=== PATIENT | male | born 1985 | race Caucasian/White ===

== ENCOUNTER → 2020-11-12 09:10 | Outpatient (CLI) | payer OTHER, SELFPAY ==
[2020-11-12 12:25] LABS: ALB/GLOB Ratio 1.2 RATIO (0.9-2.4); AST(SGOT) 34 U/L (15-37); Alanine Aminotransfer ALT/SGPT 82 U/L (16-61); Albumin, Serum 4.2 g/dL (3.2-5.0); Alkaline Phosphatase 57 U/L (45-117); Anion Gap 6 (5-15); BUN 12 mg/dL (7-18); BUN/Creat Ratio 12.6 RATIO (10-20); Calcium,Total 9.2 mg/dL (8.5-10.1); Chloride 107 mmol/L (98-107); Cholesterol 169 mg/dL (200); Creatinine, Serum 0.95 mg/dL (0.70-1.30); EST Glomerular Filtration Rate 95 mL/min (>60); Est Glom Filt Rate - Afr Amer 114 mL/min (>60); Globulin 3.5 g/dL (2.2-4.2); Glucose 98 mg/dL (74-106); High Density Lipoprotein 36 mg/dL; Potassium 4.2 mmol/L (3.5-5.1); Protein, Total 7.7 g/dL (6.4-8.2); Sodium Level 140 mmol/L (136-145); Triglycerides 97 mg/dL; Very Low Density Lipoprotein 19 mg/dL (5-40)
== END ==
PROVIDERS: PCP Family Medicine; Referring Provider Family Medicine; Visit Provider Family Medicine
DX: Z00.00 Encounter for general adult medical examination without abnormal findings (principal)
CPT/HCPCS: 36415; 80053; 80061

== ENCOUNTER → 2023-03-15 | Outpatient (CLI) | payer OTHER, SELFPAY ==
[2023-03-15 12:26] LABS: Absolute Lymphocyte Count 2.49 X10^3/uL (0.83-4.51); Absolute Neutrophil Count 4.3 X10^3/uL (2.0-7.7); Basophil# 0.04 X10^3/uL; Basophil% 0.5 % (0-1); Eosinophil# 0.21 X10^3/uL; Eosinophils% 2.8 % (0-5); Hematocrit 46.7 % (40-54); Hemoglobin 15.8 g/dL (13.0-16.5); Lymphocyte # 2.49 X10^3/ul (0.83-4.51); Lymphocyte % 32.9 % (19-41); Mean Corp Hgb Conc 33.8 g/dL (32-36); Mean Corpuscular Hgb 30.4 pg (27.0-32.0); Mean Corpuscular Volume 89.8 fL (80-94); Mean Platelet Vol. 10.3 fl (6.2-12.0); Monocyte% 6.6 % (0-10); NRBC Flagged by Analyzer 0 % (0-5); Neutrophil % 56.9 % (47-70); Platelet Count 212 K/mm3 (150-450); RBC Distribution Width CV 12.2 % (11.6-14.6); RBC Distribution Width SD 39.7 fl (35.1-43.9); White Blood Count 7.6 K/mm3 (4.4-11.0)
--- OUTSIDE RECORDS SUMMARY | 2023-03-15 12:27 | XMS RPT_ITS | CCD ---
Author Name Unknown Address [address] [place] [address] Organization [facility] Care Team Providers Care Checkerer Hand Name Role Phone WILLIAN RICHARDS Unavailable Unavailable PRISCA SHERMAN Unavailable Unavailable Results Test Name Value Interpretation Reference Range Facil ity Encounters Encounter Date Encounter Type Care Provider Facility Start: 01-28-2018 End: 01-29-2018 Emergency department patient visit WILLIAN RICHARDS Facil ity:B Payers Date Payer Category Payer Unknown [id number] 2018 Unknown [id number] 1985 Unknown [id number] Summary Purpose Family History No Family History Records Found Advance Directives No Advanced Directives Records Found Additional Source Comments (unrecognized sect ion and content) No Status Records Found INFORMATION SOURCE (unrecogn ized section and content) FOR RECORDS PERTAINING TO PATIENTS WHO ARE OR HAVE BEEN ENROLLED IN A CHEMICAL DEPENDENCY/SUBSTANCEABUSE PROGRAM, SOME INFORMATION MAY BE OMITTED. This clinical summary was aggregated from multiple sources. Caution should be exercised in using it in the provision of clinical care. This summary normalizes information from multiple sources, and as a consequence, information in this document may materially change the coding, format and clinical context of patient data. In addition, data may be omitted in some cases. CLINICAL DECISIONS SHOULD BE BASED ON THE PRIMARY CLINICAL RECORDS. [employer] provides no warranty or guarantee of the accuracy or completeness of information in this document.
[2023-03-15 13:03] LABS: AST(SGOT) 21 U/L (15-37); Alanine Aminotransfer ALT/SGPT 67 U/L (16-61); Albumin, Serum 3.8 g/dL (3.2-5.0); Alkaline Phosphatase 68 U/L (45-117); Anion Gap 6 (5-15); BUN 11 mg/dL (7-18); BUN/Creat Ratio 10.6 RATIO (10-20); Calcium,Total 10.1 mg/dL (8.5-10.1); Chloride 108 mmol/L (98-107); Cholesterol 156 mg/dL (200); Creatinine, Serum 1.04 mg/dL (0.70-1.30); EST Glomerular Filtration Rate 84 mL/min (>60); Est Glom Filt Rate - Afr Amer 102 mL/min (>60); Globulin 3.8 g/dL (2.2-4.2); Glucose 122 mg/dL (74-106); High Density Lipoprotein 34 mg/dL; Potassium 4.1 mmol/L (3.5-5.1); Protein, Total 7.6 g/dL (6.4-8.2); Sodium Level 138 mmol/L (136-145); Triglycerides 186 mg/dL; Very Low Density Lipoprotein 37 mg/dL (5-40)
== END | disposition home or self-care (01) ==
LOC: BIMLAB 10:53
PROVIDERS: PCP Family Medicine; Referring Provider Family Medicine; Visit Provider Family Medicine
DX: Z98.890 Other specified postprocedural states (principal); Z87.19 Personal history of other diseases of the digestive system; R04.0 Epistaxis; M25.562 Pain in left knee
CPT/HCPCS: 36415; 80053; 80061; 85025

== ENCOUNTER → 2023-04-26 | Outpatient (CLI) | payer OTHER, SELFPAY | END | disposition home or self-care (01) | LOC: LABSPEC 09:52 | PROVIDERS: PCP Family Medicine; Referring Provider Physician Assistant; Visit Provider Physician Assistant | DX: R50.9 Fever, unspecified (principal) | CPT/HCPCS: 87631 ==

== ENCOUNTER 2024-06-11 08:48 | Emergency (ER) | payer OTHER, SELFPAY ==
[2024-06-11 08:49] VITALS: BP 131/80; PULSE 86; RESP 16; TEMP 37; O2SAT 98; BMI 31.2
--- NOTE | 2024-06-11 08:57 | US_ITS ---
EXAM: US Scrotum and US Duplex Arterial/Venous of the Testicles, Complete CLINICAL INDICATION: ACUTE PAIN RIGHT TESTICLE TECHNIQUE: Real-time ultrasound of the scrotum with color Doppler and image documentation. Real-time duplex ultrasound scan of the arterial and venous flow of the scrotal contents with color Doppler flow and spectral waveform analysis. COMPARISON: No relevant prior studies available. FINDINGS: RIGHT TESTICLE: Unremarkable. No torsion. The right testicle measures 4.3 x 2.9 x 2.1 cm. LEFT TESTICLE: Unremarkable. No torsion. The left testicle measures 4.2 x 3.0 x 2.1 cm. EPIDIDYMIDES: Right epididymal head measures 1.1 by 1.0 by 0.9 cm. Left epididymal head measures 1.1 x 0.9 x 0.5 cm. SCROTUM: Small left hydrocele. US/Testicular with Arterial Flow IMPRESSION: Small left hydrocele. Reading [facility]
--- NOTE | 2024-06-11 08:58 | EX.ED.DYSGE1 ---
HPI History of Present Illness Chief Complaint: Abd Pain Detail of Chief Complaint: Atraumatic right testicular pain Informant: patient and spouse/S.O. Onset/Context/Timing Onset: Yesterday Context: Sudden Onset Timing: Continuous Quality: Pain Location: Right testicle Current Severity: Moderate Maximum Severity: Severe Worsened by: Touch and movement Relieved by: Nothing Associated Symptoms Associated Symptoms: Question of fullness right side Narrative Narrative: Patient is a 38-year-old male. He has history of left inguinal hernia repair 22 years ago. He presents with abrupt onset of right testicular pain. There is no history of trauma. He does not recall anything that caused the pain. He denies dysuria, frequency, urgency or hematuria. He has no history of renal ureterolithiasis. There is no family history of renal ureterolithiasis. He denies constitutional symptoms. He is status postvasectomy [address] Bowen. Prior similar symptoms: No Recent Illness/Hospitalization: No PFSH PFSH Medical History Headache, migraine Bone fracture Back problem Seasonal allergies Home Medications ?Medication ?Instructions ?Recorded ?Last Taken ?Type fexofenadine 180 mg tablet 180 mg PO DAILY 11/12/20 Unknown History (Mirta Allergy) multivitamin 1 tab PO DAILY 11/12/20 Unknown History imiquimod 5 % topical cream packet 1 applic topical 2XW #12 ea 03/15/23 Unknown Rx naproxen 500 mg tablet 500 mg PO BID #14 tabs 06/11/24 Unknown Rx Allergy/AdvReac Type Severity Reaction Status Date / Time No Known Allergies Allergy Verified 06/11/24 08:48 Family History Grandfather Cancer stomach Diabetes Grandmother Cancer Diabetes Father CVA (cerebral vascular accident) Diabetes Mother Diabetes Other Hypertension Surgical History History of hand surgery History of hernia repair Social History Smoking Status: Former smoker quit date: 03/13/20 Tobacco: How many years used: 20 alcohol intake: current alcohol intake frequency: holidays/special occasions only substance use type: does not use what type of physical activity do you participate in: other details: cardio ROS ROS ED Constitutional Constitutional ED: Denies chills, fever(s), subjective or sweats Cardiovascular Cardiovascular: Denies chest pain Respiratory/Chest Respiratory/Chest: Denies dyspnea Gastrointestinal Gastrointestinal: Denies nausea or vomiting Genitourinary Genitourinary ED: Reports other Details: Right testicular pain ; Denies dysuria, hematuria or urinary frequency Musculoskeletal Musculoskeletal: Denies arthralgias or myalgias Integumentary Denies rash Hematologic/Lymphatic Hematologic/Lymphatic: Denies easy bleeding or easy bruising EXAM Physical Exam Const Vital Signs: 06/11/24 08:49 06/11/24 10:48 Temperature 98.6 F Temperature Source Temporal Pulse Rate 86 78 Respiratory Rate 16 16 Blood Pressure 131/80 H Blood Pressure Mean 97 Pulse Ox 98 Oxygen Delivery Method Room Air Positive well nourished and well developed Constitutional Narrative: Patient appears uncomfortable. He grimaced more than once with movement. General Appearance ED: well developed; Negative for pallor HEENT HEENT Narrative: Head is atraumatic normocephalic. Ears normal. Eyes PERRL and EOMs intact bilaterally General Eye ED: Negative for scleral icterus Resp normal respiratory effort Cardio regular rate and regular rhythm GI normal to inspection, nondistended, normoactive bowel sounds, non-tender, non-distended and no masses; Negative for hepatosplenomegaly Back/Spine no CVA tenderness Extremity normal to inspection Neuro oriented x3 and CN's II-XII intact bilaterally Sensorium / Orientation: alert Psych mental status grossly normal Skin no rashes or lesions noted, no wounds and skin turgor normal Skin Narrative: Perineal scrotal area described under the portion of the EMR. General Skin Exam: elasticity normal; Negative for jaundice or pallor MDM MDM MDM Narrative Medical decision making narrative: With abrupt onset of atraumatic right testicular pain need to evaluate for torsion, epididymitis, hydrocele, hernia. There is no hernia appreciated on exam i.e. bulge or defect. Patient has an exquisitely tender testicle concern for infection versus torsion. Ultrasound with Doppler flow was ordered as well as UA, CBC and BMP. History & Record Review Additional record(s) reviewed:: Prior outpatient record (Urgent care records from April 26, 2023 reviewed for upper respiratory tract infection. Also correspondence from external source for problems with nose and authorization for CAT scan. Visit to Dr. Bowen for condyloma acuminata January 2022.) Lab Data Attestation: I reviewed the patient's lab results. Lab results narrative: CBC is normal. Labs: Laboratory Results - last 24 hr 06/11/24 06/11/24 09:05 09:56 WBC 7.8 RBC 5.30 Hgb 15.9 Hct 45.8 MCV 86.4 MCH 30.0 MCHC 34.7 RDW Std Deviation 39.0 RDW Coeff of [place] 12.4 Plt Count 215 MPV 10.1 Immature Gran % (Auto) 0.300 Neut % (Auto) 56.8 Lymph % (Auto) 34.1 [place] % (Auto) 6.5 Eos % (Auto) 1.8 Baso % (Auto) 0.5 Absolute Neuts (auto) 4.4 Absolute Lymphs (auto) 2.64 Nucleated RBC % 0 Sodium 137 Potassium 4.4 Chloride 104 Carbon Dioxide 21.5 Anion Gap 11 BUN 13 Creatinine 1.02 Estim Creat Clear Calc 113.40 Est GFR (MDRD) Non-Af 95 BUN/Creatinine Ratio 12.4 Glucose 125 H Calcium 9.6 Urine Color Yellow Urine Clarity Clear Urine pH 6.0 Ur Specific [place] 1.015 Urine Protein 15 H Urine Glucose (UA) Normal Urine Ketones Negative Urine Occult Blood Negative Urine Nitrite Negative Urine Bilirubin Negative Urine Urobilinogen Normal Ur Leukocyte Esterase Negative Urine RBC 0 SEEN Urine WBC 0 SEEN Ur Squamous Epith Cells 0 SEEN Urine Bacteria 0 SEEN Urine Mucus 0 SEEN Radiography Diagnostic Testing: Clinical Impression(s) from Imaging Studies Testicular Ultrasound 06/11/24 08:57 IMPRESSION: Small left hydrocele. Reading Location: [facility] Treatment and Re-Evaluation :: Patient and were informed of results. Patient received ketorolac in the department prior to discharge and prescribed anti-inflammatory since he has no contraindication. He was given excuse for work for today and tomorrow. Discharge Plan Triage Chief Complaint: Abd Pain ED Provider: Amor Aviles Dx/Rx/DC Orders Clinical Impression: Orchitis and epididymitis, Elevated blood-pressure reading without diagnosis of hypertension Instructions: ED Orchitis Prescriptions: New naproxen 500 mg tablet 500 mg PO BID Qty: 14 0RF No Action multivitamin Tablet 1 tab PO DAILY fexofenadine [Mirta Allergy] 180 mg tablet 180 mg PO DAILY imiquimod 5 % cream in packet 1 applic topical 2XW Qty: 12 0RF Stand Alone Forms: ED Work / School Excuse Primary Care Provider: Jose Thacker Referrals: Jose Thacker DO [Primary Care Provider] - 1-2 Weeks Junior Bowen MD [Med Staff - Active Staff] - 1-2 Days if not improving Print Language: Welsh Disposition Disposition: Home, Self Care
[2024-06-11 09:16] LABS: Absolute Lymphocyte Count 2.64 X10^3/uL (0.83-4.51); Absolute Neutrophil Count 4.4 X10^3/uL (2.0-7.7); Basophil# 0.04 X10^3/uL; Basophil% 0.5 % (0-1); Eosinophil# 0.14 X10^3/uL; Eosinophils% 1.8 % (0-5); Hematocrit 45.8 % (40-54); Hemoglobin 15.9 g/dL (13.0-16.5); Lymphocyte # 2.64 X10^3/ul (0.83-4.51); Lymphocyte % 34.1 % (19-41); Mean Corp Hgb Conc 34.7 g/dL (32-36); Mean Corpuscular Volume 86.4 fL (80-94); Mean Platelet Vol. 10.1 fl (6.2-12.0); Monocyte% 6.5 % (0-10); NRBC Flagged by Analyzer 0 % (0-5); Neutrophil # 4.41 X10^3/uL (2.7-7.7); Neutrophil % 56.8 % (47-70); Platelet Count 215 K/mm3 (150-450); RBC Distribution Width CV 12.4 % (11.6-14.6); White Blood Count 7.8 K/mm3 (4.4-11.0)
[2024-06-11 09:32] LABS: Anion Gap 11 (5-15); BUN 13 mg/dL (4-19); BUN/Creat Ratio 12.4 RATIO (10-20); Calcium,Total 9.6 mg/dL (7.6-11.0); Carbon Dioxide 21.5 mmol/L (21.0-32.0); Chloride 104 mmol/L (98-108); Creatinine, Serum 1.02 mg/dL (0.70-1.20); EST Glomerular Filtration Rate 95 (>60); Glucose 125 mg/dL (70-99); Potassium 4.4 mmol/L (3.3-5.1); Sodium Level 137 mmol/L (133-145)
[2024-06-11 10:01] LABS: Bacteria 0 SEEN /hpf (None Seen); Mucous, Urine 0 SEEN /hpf (<or=2+); Red Blood Cells-Urine 0 SEEN /hpf (0-5); Squamous Epithelial Cells - UA 0 SEEN /hpf (0-5); White Blood Cells 0 SEEN /hpf (0-5)
[2024-06-11 10:05] LABS: Color, Urine Yellow (Yellow); Glucose, Dipstick Normal (Normal); Ketone-Dipstick Negative (Negative); Leukocyte Esterase-Dipstick Negative /ul (Negative); Nitrite-Dipstick Negative (Negative); Occult Blood-Urine Negative /ul (Negative); Protein-Dipstick 15 mg/dl (Negative); Specific Gravity, Urine 1.015 (1.002-1.030); Urine Bilirubin Dipstick Negative (Negative); Urine Clarity Clear (Clear); Urine Urobilinogen Normal (Normal)
[2024-06-11 10:48] VITALS: PULSE 78; RESP 16
[2024-06-11] MEDS: Ketorolac 15 MG/ML Vial IV (11:17)
[2024-06-11 11:40] VITALS: BP 131/80; PULSE 78; RESP 16; TEMP 37; O2SAT 98
== END 2024-06-11 11:46 | disposition home or self-care (01) ==
PROVIDERS: Emergency Provider Emergency Medicine; PCP Family Medicine; Visit Provider Emergency Medicine
DX: N45.3 Epididymo-orchitis (principal); R03.0 Elevated blood-pressure reading, without diagnosis of hypertension; Z87.891 Personal history of nicotine dependence
CPT/HCPCS: 76870; 80048; 81001; 85025; 93976; 96374; 99283; A4216